=== PATIENT | female | born 1960 | race Asian ===

== ENCOUNTER 2019-05-28 18:39 | Emergency (ER) | payer BC ==
--- NOTE | 2019-05-28 19:21 | Emergency Department Report ---
Blank Doc - Documentation Documentation: 58-year-old female that presents with right rib pain. This initial assessment/diagnostic orders/clinical plan/treatment(s) is/are subject to change based on patient's health status, clinical progression and re- assessment by fellow clinical providers in the ED. Further treatment and workup at subsequent clinical providers discretion. Patient/guardians urged not to elope from the ED as their condition may be serious if not clinically assessed and managed. Initial orders include: 1- Patient sent to [facility] for further evaluation and treatment 2- Xrays
--- NOTE | 2019-05-28 20:15 | XRay Report ---
Chest with right RIBS. 05/28/2019. HISTORY: Flank pain. FINDINGS: Heart size is normal. Negative for edema, effusion or infiltrate. No bony abnormality. Signer Name: Raffaele Gao MD Signed: 05/28/2019 8:11 PM Workstation Name: [id number]
[2019-05-28] MEDS ORDERED: traMADol 50 MG TAB PO ONE (22:42)
[2019-05-28] MEDS ORDERED: amLODIPine 5 MG TAB PO ONE (22:42)
--- NOTE | 2019-05-28 22:56 | Emergency Department Report ---
ED General Adult HPI - General Chief complaint: Abdominal Pain Stated complaint: RIGHT RIB PAIN Time Seen by Provider: 05/28/19 19:21 Source: patient Mode of arrival: Ambulatory Limitations: No Limitations - History of Present Illness Initial comments: Patient is a 58-year-old female presents emergency room with complaints of right lateral rib pain that began 3 weeks ago. She denies any fall, injury, nausea, vomiting, diarrhea, fever, urinary symptoms, numbness, weakness, shortness of breath, any other symptoms. she states the pain is worse with movement or coughing. Patient states she has a past medical history of hypertension and hyperlipidemia. She states that she has not taken medications in several years. She states last year she saw a primary care physician who prescribed her hypertension medication and she never got it filled. She denies any allergies medications. - Related Data Previous Rx's Medication Instructions Recorded Last Taken Type Cyclobenzaprine [Flexeril] 10 mg PO QHS PRN #12 tablet 05/29/19 Unknown Rx Losartan [Cozaar] 25 mg PO QDAY #30 tablet 05/29/19 Unknown Rx Naproxen [Naprosyn TAB] 500 mg PO BID PRN #14 tablet 05/29/19 Unknown Rx Allergies Allergy/AdvReac Type Severity Reaction Status Date / Time No Known Allergies Allergy Unverified 05/28/19 23:03 ED Review of Systems ROS: Stated complaint: RIGHT RIB PAIN Other details as noted in HPI Comment: All other systems reviewed and negative ED Past Medical Hx - Past Medical History Previous Medical History?: No - Surgical History Past Surgical History?: No Additional Surgical History: Tonsilectomy. Tubal ligation. Fractured left leg - Social History Smoking Status: Never Smoker Substance Use Type: Marijuana - Medications Home Medications: Home Medications Medication Instructions Recorded Confirmed Last Taken Type Cyclobenzaprine [Flexeril] 10 mg PO QHS PRN #12 tablet 05/29/19 Unknown Rx Losartan [Cozaar] 25 mg PO QDAY #30 tablet 05/29/19 Unknown Rx Naproxen [Naprosyn TAB] 500 mg PO BID PRN #14 tablet 05/29/19 Unknown Rx ED Physical Exam - General Limitations: No Limitations General appearance: alert, in no apparent distress - Head Head exam: Present: atraumatic, normocephalic - Eye Eye exam: Present: normal appearance - ENT ENT exam: Present: mucous membranes moist - Respiratory Respiratory exam: Present: normal lung sounds bilaterally, chest wall tenderness (mild TTP to the right lateral ribs, no deformity, no crepitus, no ecchymosis). Absent: respiratory distress, wheezes, rales, rhonchi, stridor, accessory muscle use, decreased breath sounds, prolonged expiratory - Cardiovascular Cardiovascular Exam: Present: regular rate, normal rhythm, normal heart sounds. Absent: systolic murmur, diastolic murmur, rubs, gallop - Neurological Exam Neurological exam: Present: alert, oriented X3 - Psychiatric Psychiatric exam: Present: normal affect, normal mood - Skin Skin exam: Present: warm, dry, intact ED Course Vital Signs 05/28/19 05/28/19 05/28/19 19:21 23:00 23:03 Temperature 98.7 F Pulse Rate 99 H 79 79 Respiratory 18 16 Rate Blood Pressure 212/108 219/109 Blood Pressure 219/109 [Right] O2 Sat by Pulse 100 97 Oximetry 05/28/19 05/29/19 05/29/19 23:06 00:57 02:36 Temperature Pulse Rate 76 71 Respiratory 18 17 17 Rate Blood Pressure Blood Pressure 210/98 188/95 [Right] O2 Sat by Pulse 97 99 Oximetry 05/29/19 02:52 Temperature Pulse Rate 81 Respiratory 18 Rate Blood Pressure Blood Pressure 181/84 [Right] O2 Sat by Pulse 100 Oximetry ED Medical Decision Making - Lab Data Result diagrams: 05/28/19 23:03 05/28/19 23:03 Lab Results 05/28/19 05/28/19 05/29/19 Range/Units 23:03 23:03 01:35 WBC 8.4 (4.5-11.0) K/mm3 RBC 4.71 (3.65-5.03) M/mm3 Hgb 14.9 H (10.1-14.3) gm/dl Hct 43.1 H (30.3-42.9) % MCV 92 (79-97) fl MCH 32 (28-32) pg MCHC 35 H (30-34) % RDW 13.4 (13.2-15.2) % Plt Count 358 (140-440) K/mm3 Lymph % (Auto) 35.3 H (13.4-35.0) % Dent % (Auto) 7.5 H (0.0-7.3) % Eos % (Auto) 5.7 H (0.0-4.3) % Baso % (Auto) 0.6 (0.0-1.8) % Lymph # 3.0 (1.2-5.4) K/mm3 Dent # 0.6 (0.0-0.8) K/mm3 Eos # 0.5 H (0.0-0.4) K/mm3 Baso # 0.0 (0.0-0.1) K/mm3 Seg Neutrophils % 50.9 (40.0-70.0) % Seg Neutrophils # 4.3 (1.8-7.7) K/mm3 Sodium 142 (137-145) mmol/L Potassium 4.2 (3.6-5.0) mmol/L Chloride 103.6 (98-107) mmol/L Carbon Dioxide 23 (22-30) mmol/L Anion Gap 20 mmol/L BUN 8 (7-17) mg/dL Creatinine 0.7 (0.7-1.2) mg/dL Estimated GFR > 60 ml/min BUN/Creatinine Ratio 11 % Glucose 97 (65-100) mg/dL Calcium 9.4 (8.4-10.2) mg/dL Total Bilirubin 0.40 (0.1-1.2) mg/dL AST 29 (5-40) units/L ALT 26 (7-56) units/L Alkaline Phosphatase 85 (35-129) units/L Troponin T < 0.010 < 0.010 (0.00-0.029) ng/mL Total Protein 7.8 (6.3-8.2) g/dL Albumin 4.4 (3.9-5) g/dL Albumin/Globulin Ratio 1.3 % - EKG Data EKG shows normal: sinus rhythm, intervals, QRS complexes, ST-T waves Rate: normal - EKG Data 05/29/19 02:44 LAD LAFB no STEMI - Radiology Data Radiology results: report reviewed Chest with right RIBS. 05/28/2019. HISTORY: Flank pain. FINDINGS: Heart size is normal. Negative for edema, effusion or infiltrate. No bony abnormality. Signer Name: Raffaele Gao MD Signed: 05/28/2019 8:11 PM Workstation Name: [email or web address] Transcribed By: SAEED Dictated By: Raffaele Gao MD Electronically Authenticated By: Raffaele Gao MD Signed Date/Time: 05/28/192010 DD/ 08 TD/TT: - Medical Decision Making Patient is a 58-year-old female presents emergency room with complaints of right lateral rib pain that began 3 weeks ago. She denies any fall, injury, nausea, vomiting, diarrhea, fever, urinary symptoms, numbness, weakness, shortness of breath, any other symptoms. she states the pain is worse with movement or co ughing. Patient states she has a past medical history of hypertension and hyperlipidemia. She states that she has not taken medications in several years. She states last year she saw a primary care physician who prescribed her hypertension medication and she never got it filled. She denies any allergies medications. initial vitals with elevated BP which improved upon medication administration. on exam: mild TTP to the right lateral ribs, no deformity, no crepitus, no ecchymosis. Labs are stable. Troponin is negative 2. EKG with left axis deviation and left anterior fascicular block. CXR: Heart size is normal. Negative for edema, effusion or infiltrate. No bony abnormality. Patient's discomfort treated while in the emergency department as she did not drive and it improved. Patient's discomfort is localized to the right lateral ribs and is worse with movement and palpation. Given patient's EKG findings will have patient follow-up with a raw stock drier tender on an outpatient basis for stress test. Discussed all results with patient and discussed the need for following up with a raw stock drier tender and primary care doctor and patient verbalized understanding. Patient given prescription for losartan, naproxen, Flexeril. advised pt to Please take medication as prescribed. Do not drive or operate machinery while taking muscle relaxer. May use ice pack, heating pad, rest, epsom salt bath. please follow-up with a raw stock drier tender in the next 2-3 days. Please follow-up with a primary care doctor in the next 2-3 days for management of your blood pressure. Keep a blood pressure log take your blood pressure 3 times a day and take this to a primary care doctor. Eat a low sodium diet and increase your water intake and incorporate daily exercise. Return to the emergency room for any new or worsening symptoms. - Differential Diagnosis fx, strain, costochrondritis, PTX, PNA Critical care attestation.: If time is entered above; I have spent that time in minutes in the direct care of this critically ill patient, excluding procedure time. ED Disposition Clinical Impression: Atypical chest pain, Left anterior fascicular block HTN (hypertension) Qualifiers: Hypertension type: essential hypertension Qualified Code(s): I10 - Essential (primary) hypertension Disposition: TO HOME OR SELFCARE Is pt being admited?: No Does the pt Need Aspirin: No Condition: Stable Instructions: Chest Pain (ED), Hypertension (ED) Additional Instructions: Please take medication as prescribed. Do not drive or operate machinery while taking muscle relaxer. May use ice pack, heating pad, rest, epsom salt bath. please follow-up with a raw stock drier tender in the next 2-3 days. Please follow-up with a primary care doctor in the next 2-3 days for management of your blood pressure. Keep a blood pressure log take your blood pressure 3 times a day and take this to a primary care doctor. Eat a low sodium diet and increase your water intake and incorporate daily exercise. Return to the emergency room for any new or worsening symptoms. Prescriptions: Cyclobenzaprine [Flexeril] 10 mg PO QHS PRN #12 tablet PRN Reason: Muscle Spasm Losartan [Cozaar] 25 mg PO QDAY #30 tablet Naproxen [Naprosyn TAB] 500 mg PO BID PRN #14 tablet PRN Reason: pain Referrals: RIANNA FARLEY MD [Staff Physician] - 2-3 Days SANKET MUELLER MD [Staff Physician] - 2-3 Days Forms: Work/School Release Form(ED) Time of Disposition: 02:41 Print Language: MACEDONIAN
[2019-05-28 23:45] LABS: Basophils % (Auto) 0.6 % (0.0-1.8); Eosinophils # (Auto) 0.5 K/mm3 (0.0-0.4); Eosinophils % (Auto) 5.7 % (0.0-4.3); Hematocrit 43.1 % (30.3-42.9); Hemoglobin 14.9 gm/dl (10.1-14.3); Lymphocytes % (Auto) 35.3 % (13.4-35.0); Mean Corpuscular HGB Conc 35 % (30-34); Mean Corpuscular Volume 92 fl (79-97); Monocytes # (Auto) 0.6 K/mm3 (0.0-0.8); Monocytes % (Auto) 7.5 % (0.0-7.3); Platelet Count 358 K/mm3 (140-440); Red Blood Count 4.71 M/mm3 (3.65-5.03); Red Cell Distribution Width 13.4 % (13.2-15.2)
[2019-05-29 00:08] LABS: Alanine Aminotransferase 26 units/L (7-56); Albumin 4.4 g/dL (3.9-5); BUN/Creatinine Ratio 11; Blood Urea Nitrogen 8 mg/dL (7-17); Calcium 9.4 mg/dL (8.4-10.2); Hemolysis Index 52
[2019-05-29] MEDS ORDERED: hydrALAZINE 25 MG TAB PO ONE (00:59)
[2019-05-29 02:52] VITALS: BP 181/84
== END 2019-05-29 02:52 | disposition home or self-care (01) ==
LOC: ED 18:39
DX: I10 Essential (primary) hypertension (principal); R07.89 Other chest pain; I44.4 Left anterior fascicular block; Z98.51 Tubal ligation status; Z98.890 Other specified postprocedural states; Z79.899 Other long term (current) drug therapy
CPT/HCPCS: 36415; 80053; 84484; 85025; 93005; 93010